=== PATIENT | male | born 1960 | race Two or more races ===

== ENCOUNTER 2024-05-06 14:14 | Emergency (ER) | payer SELFPAY ==
[2024-05-06] MEDS: predniSONE 10 MG Tab PO ONE (16:20)
[2024-05-06] MEDS: Acyclovir 200 MG Cap PO ONE (16:20)
== END 2024-05-06 16:26 | disposition home or self-care (01) ==
LOC: MW.ED 14:14
DX: G51.0 Bell's palsy (principal); Z75.8 Other problems related to medical facilities and other health care
CPT/HCPCS: 70450; 99284; A9270